=== PATIENT | male | born 1995 | race African-American/Black ===

== ENCOUNTER 2023-06-12 22:25 | Inpatient (IN) | payer OTHER ==
[2023-06-12 22:50] VITALS: BMI 21.5
[2023-06-13] MEDS ORDERED: LOPERAMIDE HCL 2 MG CAPSULE PO PRN (01:47)
[2023-06-13] MEDS ORDERED: guaiFENesin 600 MG TABLET.ER (FP) PO PRN (01:47)
[2023-06-13] MEDS ORDERED: ONDANSETRON *ODT* 4 MG TABLET SL PRN (01:47)
[2023-06-13] MEDS ORDERED: BENZOCAINE/MENTHOL (CHLORASEPTIC ) LOZENGE MM PRN (01:47)
[2023-06-13] MEDS ORDERED: DICYCLOMINE HCL 10 MG CAPSULE PO PRN (01:47)
[2023-06-13] MEDS ORDERED: BENZONATATE 200 MG CAPSULE PO PRN (01:47)
[2023-06-13] MEDS ORDERED: NALOXONE HCL (KLOXXADO) 8 MG SPRAY NS PRN (01:47)
[2023-06-13] MEDS ORDERED: IBUPROFEN 600 MG TABLET (FP) PO PRN (01:47)
[2023-06-13] MEDS ORDERED: ACETAMINOPHEN 325 MG TABLET (FP) PO PRN (01:47)
[2023-06-13] MEDS ORDERED: NALOXONE HCL 0.4 MG/ML VIAL IM PRN (01:47)
[2023-06-13] MEDS ORDERED: BISMUTH SUBSALICYLATE 524 MG/30 ML PO PRN (01:47)
[2023-06-13] MEDS ORDERED: IBUPROFEN 400 MG TABLET (FP) PO PRN (01:47)
[2023-06-13] MEDS ORDERED: POLYETHYLENE GLYCOL (HEALTHYLAX) 3350 17 GM PACKET PO PRN (01:47)
[2023-06-13] MEDS ORDERED: MAGNESIUM HYDROX 2400MG/30ML ORAL SUSPENSION 30 ML CUP PO PRN (01:47)
[2023-06-13] MEDS ORDERED: MAG HYDROX/AL HYDROX/SIMETH 30 ML UNIT-DOSE CUP PO PRN (01:47)
[2023-06-13] MEDS ORDERED: methaDONE HCL 10 MG TABLET (FOR DETOX USE ONLY) PO ONE (02:24)
[2023-06-13] MEDS ORDERED: cloNIDine HCL 0.1 MG TABLET PO PRN (02:24)
[2023-06-13] MEDS ORDERED: NICOTINE POLACRILEX 2 MG GUM BUC PRN (02:25)
[2023-06-13] MEDS ORDERED: methaDONE HCL 10 MG TABLET (FOR DETOX USE ONLY) ONE (02:37)
[2023-06-13] MEDS: NICOTINE 14 MG/24 HOURS TOPICAL PATCH TD SCH (10:42)
[2023-06-13] MEDS: PRENATAL VITAMINS W/ FOLIC ACID TABLET (FP) PO SCH (10:43)
[2023-06-13] MEDS: METHOCARBAMOL 500 MG TABLET PO PRN (17:19)
[2023-06-13] MEDS: hydrOXYzine PAMOATE 25 MG CAPSULE (FP) PO PRN (17:19)
[2023-06-13] MEDS: MELATONIN 5 MG TABLETS PO SCH (21:06)
[2023-06-13] MEDS: THIAMINE HCL 100 MG TABLET (FP) PO SCH (21:06)
[2023-06-14] MEDS: hydrOXYzine PAMOATE 25 MG CAPSULE (FP) PO PRN ×2 (05:48→21:10)
[2023-06-14] MEDS: METHOCARBAMOL 500 MG TABLET PO PRN ×2 (09:34→21:10)
[2023-06-14] MEDS: NICOTINE 14 MG/24 HOURS TOPICAL PATCH TD SCH (09:34)
[2023-06-14] MEDS: PRENATAL VITAMINS W/ FOLIC ACID TABLET (FP) PO SCH (09:34)
[2023-06-14 09:46] LABS: HEMATOCRIT 39.4 % (35.4-49); MCH 25.6 pg (25.7-33.7); MEAN CELL VOLUME 77.7 fl (80-96); MEAN PLT VOLUME 9.4 fl (7.5-11.1); PLATELET COUNT 268 10^3/uL (134-434); RBC 5.08 M/mm3 (4.00-5.60); RDW 14.3 % (11.9-15.9)
[2023-06-14 09:53] LABS: POTASSIUM 4.2 mmol/L (3.5-5.1)
[2023-06-14 10:02] LABS: CALCIUM 9.2 mg/dL (8.5-10.1)
[2023-06-14 10:04] LABS: ALBUMIN 3.3 g/dl (3.4-5.0); BLOOD UREA NITROGEN 9.1 mg/dL (7-18)
[2023-06-14 10:06] LABS: CREATININE 0.8 mg/dL (0.55-1.3)
[2023-06-14 10:08] LABS: BILIRUBIN,TOTAL 0.4 mg/dL (0.2-1); TOT PROT 7.7 g/dl (6.4-8.2)
[2023-06-14] MEDS: MELATONIN 5 MG TABLETS PO SCH (21:10)
[2023-06-14] MEDS: THIAMINE HCL 100 MG TABLET (FP) PO SCH (21:10)
[2023-06-15 06:26] VITALS: RESP 17
[2023-06-15 09:01] VITALS: BP 133/77; PULSE 61; TEMP 98
[2023-06-15] MEDS ORDERED: methaDONE HCL 10 MG TABLET (FOR DETOX USE ONLY) PO ONE (10:00)
[2023-06-15] MEDS: PRENATAL VITAMINS W/ FOLIC ACID TABLET (FP) PO SCH (10:11)
[2023-06-15] MEDS: NICOTINE 14 MG/24 HOURS TOPICAL PATCH TD SCH (10:13)
[2023-06-17] MEDS ORDERED: methaDONE HCL 10 MG TABLET (FOR DETOX USE ONLY) PO ONE (10:00)
== END 2023-06-15 12:13 | disposition left against medical advice (07) | DRG 770 ==
LOC: YASAS 22:25 → Y3N 06-13 02:33
PROVIDERS: ADMIT Allergy & Immunology; ATTEND Surgery
PROC: HZ2ZZZZ Detoxification Services for Substance Abuse Treatment (ICD-10-PCS; principal; 2023-06-13)
DX: F11.23 Opioid dependence with withdrawal (principal); F14.20 Cocaine dependence, uncomplicated; F12.20 Cannabis dependence, uncomplicated; F17.210 Nicotine dependence, cigarettes, uncomplicated
CPT/HCPCS: 36415; 80053; 85027; 86780; 87635; 93005; 93010

== ENCOUNTER 2024-02-13 14:52 | Inpatient (IN) | payer OTHER ==
[2024-02-13 15:30] VITALS: BMI 24.1
[2024-02-13] MEDS ORDERED: guaiFENesin 600 MG TABLET.ER (FP) PO PRN (18:24)
[2024-02-13] MEDS ORDERED: IBUPROFEN 600 MG TABLET (FP) PO PRN (18:24)
[2024-02-13] MEDS ORDERED: MAGNESIUM HYDROX 2400MG/30ML ORAL SUSPENSION 30 ML CUP PO PRN (18:24)
[2024-02-13] MEDS ORDERED: BENZOCAINE/MENTHOL (CHLORASEPTIC ) LOZENGE MM PRN (18:24)
[2024-02-13] MEDS ORDERED: POLYETHYLENE GLYCOL (HEALTHYLAX) 3350 17 GM PACKET PO PRN (18:24)
[2024-02-13] MEDS ORDERED: BISMUTH SUBSALICYLATE 524 MG/30 ML PO PRN (18:24)
[2024-02-13] MEDS ORDERED: ONDANSETRON *ODT* 4 MG TABLET SL PRN (18:24)
[2024-02-13] MEDS ORDERED: ACETAMINOPHEN 325 MG TABLET (FP) PO PRN (18:24)
[2024-02-13] MEDS ORDERED: DICYCLOMINE HCL 10 MG CAPSULE PO PRN (18:24)
[2024-02-13] MEDS ORDERED: NALOXONE HCL (KLOXXADO) 8 MG SPRAY NS PRN (18:24)
[2024-02-13] MEDS ORDERED: IBUPROFEN 400 MG TABLET (FP) PO PRN (18:24)
[2024-02-13] MEDS ORDERED: BENZONATATE 200 MG CAPSULE PO PRN (18:24)
[2024-02-13] MEDS ORDERED: MAG HYDROX/AL HYDROX/SIMETH 30 ML UNIT-DOSE CUP PO PRN (18:24)
[2024-02-13] MEDS ORDERED: NALOXONE HCL 0.4 MG/ML VIAL IM PRN (18:24)
[2024-02-13] MEDS ORDERED: LOPERAMIDE HCL 2 MG CAPSULE PO PRN (18:24)
[2024-02-13] MEDS: DOXYCYCLINE HYCLATE 100 MG TABLET PO ONE (20:54)
[2024-02-13] MEDS: THIAMINE 100 MG TABLET PO SCH (22:55)
[2024-02-13] MEDS: hydrOXYzine PAMOATE 25 MG CAPSULE (FP) PO PRN (22:55)
[2024-02-13] MEDS: CEFADROXIL 500 MG PO SCH (22:55)
[2024-02-13] MEDS: METHOCARBAMOL 500 MG TABLET PO PRN (22:55)
[2024-02-13] MEDS: MELATONIN 5 MG TABLETS PO SCH (22:56)
[2024-02-13] MEDS: NAPROXEN 500 MG TABLET PO SCH (22:56)
[2024-02-14] MEDS: FLUTICASONE PROP 0.05% 16 GM NASAL SPRAY NS SCH (09:57)
[2024-02-14] MEDS: PRENATAL VITAMINS W/ FOLIC ACID TABLET (FP) PO SCH (09:57)
[2024-02-14] MEDS: DOXYCYCLINE HYCLATE 100 MG TABLET PO SCH (09:57)
[2024-02-14] MEDS: predniSONE 10 MG TABLET (UD) PO SCH (10:09)
[2024-02-14] MEDS ORDERED: cloNIDine HCL 0.1 MG TABLET PO PRN (10:38)
[2024-02-14] MEDS ORDERED: methaDONE HCL 10 MG TABLET (FOR DETOX USE ONLY) PO PRN (10:39)
[2024-02-14] MEDS: methaDONE HCL 10 MG TABLET (FOR DETOX USE ONLY) PO ONE (11:21)
[2024-02-14 13:09] VITALS: RESP 18
[2024-02-14 16:52] VITALS: BP 138/79; PULSE 79; TEMP 98
[2024-02-16] MEDS ORDERED: methaDONE HCL 10 MG TABLET (FOR DETOX USE ONLY) PO ONE (10:00)
[2024-02-18] MEDS ORDERED: methaDONE HCL 10 MG TABLET (FOR DETOX USE ONLY) PO ONE (10:00)
== END 2024-02-14 18:24 | disposition left against medical advice (07) | DRG 770 ==
LOC: YASAS 14:52 → UNDOADMIN 18:35 → Y6N 18:35 → UNDODISIN 02-14 18:24
PROVIDERS: ADMIT Allergy & Immunology; ATTEND Surgery
PROC: HZ2ZZZZ Detoxification Services for Substance Abuse Treatment (ICD-10-PCS; principal; 2024-02-13)
DX: F11.23 Opioid dependence with withdrawal (principal); F14.20 Cocaine dependence, uncomplicated; F12.20 Cannabis dependence, uncomplicated; F17.210 Nicotine dependence, cigarettes, uncomplicated; S52.91XD Unspecified fracture of right forearm, subsequent encounter for closed fracture with routine healing; X58.XXXD Exposure to other specified factors, subsequent encounter
CPT/HCPCS: 80305; 80307; 93005; 93010